=== PATIENT | female | born 1960 | race Two or more races ===

== ENCOUNTER 2023-10-29 20:37 | Emergency (ER) | payer OTHER ==
[~2023-10-29] VITALS: Ht 167.6 cm; Wt 68.0 kg
[2023-10-29] MEDS ORDERED: LORAZEPAM INJ 2 MG/ML VIAL ONE (21:01)
[2023-10-29] MEDS: LORAZEPAM INJ 2 MG/ML VIAL IV ONE (21:16)
[2023-10-29] MEDS: IV NS 0.9% 1,000 ML BAG IV ONE (21:16)
[2023-10-29 21:18] LABS: BASOPHILS # (AUTO) 0.1 K/uL (0.0-0.2); BASOPHILS % (AUTO) 1.1 % (0.0-2.0); EOSINOPHILS # (AUTO) 0.1 K/uL (0.0-0.7); EOSINOPHILS % (AUTO) 1.6 % (0.0-6.0); HEMATOCRIT 37 % (33-45); HEMOGLOBIN 12.8 g/dL (11.5-14.8); LYMPHOCYTES # (AUTO) 2.8 K/uL (0.8-4.8); LYMPHOCYTES % (AUTO) 41.6 % (20.0-44.0); MEAN CORPUSCULAR HEMOGLOBIN 32 PG (26.0-33.0); MEAN CORPUSCULAR HGB CONC 35 g/dl (31.0-36.0); MEAN CORPUSCULAR VOLUME 91 fL (82-100); MONOCYTES # (AUTO) 0.5 K/uL (0.1-1.30); MONOCYTES % (AUTO) 6.9 % (2.0-12.0); NEUTROPHILS # (AUTO) 3.2 K/uL (1.8-8.9); NEUTROPHILS % (AUTO) 48.8 % (43.0-81.0); PLATELET COUNT (AUTO) 223 K/uL (150-450); RED BLOOD CELL COUNT(AUTO) 4.02 MIL/uL (4.0-5.2); RED CELL DISTRIBUTION WIDTH 12.7 % (11.5-15.0); WHITE BLOOD COUNT (AUTO) 6.6 K/uL (4.3-11.0)
[2023-10-29 21:43] LABS: CALCIUM, SERUM 8.8 mg/dL (8.5-10.1); CARBON DIOXIDE 24 mmol/L (21-32); CHLORIDE 97 mmol/L (98-107); CREATININE 0.8 mg/dL (0.6-1.3); GLUCOSE 120 mg/dL (74-106); POTASSIUM 3.6 mmol/L (3.5-5.1); SODIUM SERUM 131 mmol/L (136-145); UREA NITROGEN, BLOOD 17 mg/dL (7-18)
[2023-10-29] MEDS ORDERED: ASPIRIN 325 MG TABLET ONE (22:38)
[2023-10-29] MEDS: ASPIRIN 325 MG TABLET PO ONE (22:44)
[2023-10-30 04:06] VITALS: BP 111/64; TEMP 98.1; O2SAT 96
== END 2023-10-30 04:07 | disposition short-term general hospital (02) ==
LOC: EDBD 20:39 → ER 20:39
DX: T40.711A Poisoning by cannabis, accidental (unintentional), initial encounter (principal); R06.02 Shortness of breath; I21.4 Non-ST elevation (NSTEMI) myocardial infarction; I10 Essential (primary) hypertension; Z20.822 Contact with and (suspected) exposure to COVID-19; Y92.89 Other specified places as the place of occurrence of the external cause
CPT/HCPCS: 99285; 96374; 71045; 96361; 87426; 93005; 85025; 80048; 36415; 84484 ×2; J2060; J7030